=== PATIENT | male | born 1995 ===

== ENCOUNTER 2020-01-05 00:05 | Emergency (ER) | payer OTHER, BC ==
[~2020-01-05] VITALS: Ht 177.8 cm; Wt 93.0 kg
[2020-01-05] MEDS ORDERED: BACITO TOP (00:53)
== END 2020-01-05 01:26 | disposition home or self-care (01) ==
LOC: ER 00:05
DX: S60.450A Superficial foreign body of right index finger, initial encounter (principal); Z23 Encounter for immunization; W45.8XXA Other foreign body or object entering through skin, initial encounter
CPT/HCPCS: 10120; 90471; 90714; 99283-25; A9270-GY